=== PATIENT | female | born 1985 | race Hispanic/Latino ===

== ENCOUNTER 2017-07-12 03:36 | Emergency (ER) | payer SELFPAY ==
[2017-07-12 03:59] LABS: APPEARANCE,URINE Clear (CLEAR); BILIRUBIN,URINE Negative (NEGATIVE); COLOR,URINE Yellow (YELLOW); GLUCOSE, URINE (UA) Negative (NEGATIVE); KETONES,URINE Negative (NEGATIVE); LEUKOCYTE ESTERASE ,URINE Negative (NEGATIVE); NITRATE,URINE Negative (NEGATIVE); OCCULT BLOOD,URINE Large (NEGATIVE); PROTEIN,URINE Negative (NEGATIVE); UROBILINOGEN,URINE 0.2 mg/dL (0.2-1.0)
[2017-07-12 04:01] LABS: HCG,QUAL RESULT NEGATIVE (NEGATIVE)
[2017-07-12] MEDS ORDERED: KETOROLAC TROMETHAMINE 30MG/ML ONE (04:16)
[2017-07-12 04:29] LABS: BACTERIA,URINE Few /HPF (None Seen)
[2017-07-14 16:10] LABS: CHLAMYDIA DNA N.A.AMPLIFY Negative (Negative)
== END 2017-07-12 05:33 | disposition home or self-care (01) ==
LOC: EDH 03:36
DX: R10.2 Pelvic and perineal pain (principal); R11.0 Nausea; R19.7 Diarrhea, unspecified; E11.9 Type 2 diabetes mellitus without complications; I10 Essential (primary) hypertension
CPT/HCPCS: 76856; 81001; 81025; 87210; 87486; 87797; 96372; 99285; J1885